=== PATIENT | male | born 1970 | race Caucasian/White ===

== ENCOUNTER 2017-08-15 10:26 | Emergency (ER) | payer BC ==
[2017-08-15] MEDS ORDERED: ONDANSETRON 4 MG/2 ML VIAL IVP STA (11:08)
[2017-08-15] MEDS ORDERED: SODIUM CHLORIDE 0.9% 1,000 ML IV STA (11:08)
[2017-08-15] MEDS ORDERED: KETOROLAC 30 MG/ML 1 ML VIAL IVP STA (11:08)
--- NOTE | 2017-08-15 11:14 | ED ---
General Adult HPI - General Chief complaint: Abdominal Pain Stated complaint: POSS DEHYDRATION, UNABLE TO EAT OR URINATE Time Seen by Provider: 08/15/17 11:02 Source: patient, RN notes reviewed Mode of arrival: ambulatory Limitations: no limitations - History of Present Illness Initial comments: Patient's a 46-year-old male who presents emergency room today with multiple complaints. Patient does admit that he's had cough congestion over the last week. He doesn't sputum production at times. He doesn't feeling nauseated over the last 5 days. States had a decreased appetite is not really ate anything the last 2 days. States he last ate something 2 days ago. Patient states is not any vomiting. He does admit that his had no bowel movement. States he has been urinating but just going small amounts. He feels like he has not taken anything in. Patient admits to feeling hot and cold. Admits to chills. He admits to bodyaches. States he took some TheraFlu at home this morning. States has not taken anything else. States he did try to go to urgent care was advised coming here to emergency room. Patient denies any recent shortness of breath, chest pain, back pain, vomiting, numbness or tingling, dysuria or hematuria, constipation or diarrhea, headaches or visual changes, or any other complaints. - Related Data Home Medications Medication Instructions Recorded Confirmed Diphenhydra/Phenyleph/Acetamin 1 pack PO DAILY PRN 08/15/17 08/15/17 [Theraflu Severe Cold & Cough] Multivitamins, Thera [Multivitamin 1 tab PO DAILY 08/15/17 08/15/17 (formulary)] Previous Rx's Medication Instructions Recorded Ibuprofen [Motrin] 600 mg PO Q6HR PRN #20 day 08/15/17 Allergies Allergy/AdvReac Type Severity Reaction Status Date / Time No Known Allergies Allergy Verified 08/15/17 10:47 Review of Systems ROS Statement: Those systems with pertinent positive or pertinent negative responses have been documented in the HPI. ROS Other: All systems not noted in ROS Statement are negative. Past Medical History Past Medical History: No Reported History History of Any Multi-Drug Resistant Organisms: None Reported Past Surgical History: No Surgical Hx Reported Past Psychological History: No Psychological Hx Reported Smoking Status: Never smoker Past Alcohol Use History: None Reported Past Drug Use History: None Reported General Exam - General Exam Comments Initial Comments: General: The patient is awake and alert, in no distress, and does not appear acutely ill. Eye: Pupils are equal, round and reactive to light, extra-ocular movements are intact. No nystagmus. There is normal conjunctiva bilaterally. No signs of icterus. Ears, nose, mouth and throat: There are moist mucous membranes and no oral lesions. Neck: The neck is supple, there is no tenderness or JVD. Cardiovascular: There is a regular rate and rhythm. No murmur, rub or gallop is appreciated. Respiratory: Lungs are clear to auscultation, respirations are non-labored, breath sounds are equal. No wheezes, stridor, rales, or rhonchi. Gastrointestinal: Normal appearance of the abdomen. Normal bowel sounds. Abdomen soft on palpation. Patient does have mild tenderness in the upper quadrants and epigastric areas. No rebound tenderness. No guarding. Musculoskeletal: Normal ROM, no tenderness. Strength 5/5. Sensation intact. Pulses equal bilaterally 2+. Neurological: A&O x 3. CN II-XII intact, There are no obvious motor or sensory deficits. Coordination appears grossly intact. Speech is normal. Skin: Skin is warm and dry and no rashes or lesions are noted. Psychiatric: Cooperative, appropriate mood & affect, normal judgment. Limitations: no limitations Course Vital Signs 08/15/17 10:39 Temperature 97.7 F Pulse Rate 89 Respiratory 22 Rate Blood Pressure 137/96 O2 Sat by Pulse 98 Oximetry Medical Decision Making - Medical Decision Making Patient reexamined at this time shows no signs of distress. He is feeling much better from IV fluids here in the emergency room. Patient's labs been reviewed does show some mild dehydration. Patient's influenza A positive. Results were discussed with patient. Sinus feeling well and discharged home. Advised continue tall/Motrin for fever and body aches at home. Advised to follow up his family doctor return here to the emergency room if any symptoms increase or worsen or for any other concerns. - Lab Data Result diagrams: 08/15/17 11:45 08/15/17 11:45 Lab Results 08/15/17 08/15/17 08/15/17 Range/Units 11:10 11:45 11:45 WBC 5.9 (3.8-10.6) k/uL RBC 5.20 (4.30-5.90) m/uL Hgb 15.8 (13.0-17.5) gm/dL Hct 47.3 (39.0-53.0) % MCV 91.1 (80.0-100.0) fL MCH 30.5 (25.0-35.0) pg MCHC 33.5 (31.0-37.0) g/dL RDW 13.8 (11.5-15.5) % Plt Count 157 (150-450) k/uL Neutrophils % 66 % Lymphocytes % 21 % Monocytes % 9 % Eosinophils % 2 % Basophils % 1 % Neutrophils # 3.9 (1.3-7.7) k/uL Lymphocytes # 1.2 (1.0-4.8) k/uL Monocytes # 0.5 (0-1.0) k/uL Eosinophils # 0.1 (0-0.7) k/uL Basophils # 0.0 (0-0.2) k/uL Sodium 143 (137-145) mmol/L Potassium 4.3 (3.5-5.1) mmol/L Chloride 103 (98-107) mmol/L Carbon Dioxide 24 (22-30) mmol/L Anion Gap 16 mmol/L BUN 25 H (9-20) mg/dL Creatinine 1.30 H (0.66-1.25) mg/dL Est GFR (MDRD) Af Amer >60 (>60 ml/min/1.73 sqM) Est GFR (MDRD) Non-Af 59 (>60 ml/min/1.73 sqM) Glucose 100 H (74-99) mg/dL Calcium 9.9 (8.4-10.2) mg/dL Total Bilirubin 0.8 (0.2-1.3) mg/dL AST 23 (17-59) U/L ALT 38 (21-72) U/L Alkaline Phosphatase 78 (38-126) U/L Total Protein 8.0 (6.3-8.2) g/dL Albumin 4.9 (3.5-5.0) g/dL Amylase 46 (30-110) U/L Lipase 79 (23-300) U/L Urine Color Yellow Urine Appearance Cloudy (Clear) Urine pH 5.5 (5.0-8.0) Ur Specific Cochran 1.033 (1.001-1.035) Urine Protein 2+ H (Negative) Urine Glucose (UA) Negative (Negative) Urine Ketones 1+ H (Negative) Urine Blood Trace H (Negative) Urine Nitrite Negative (Negative) Urine Bilirubin Negative (Negative) Urine Urobilinogen 2.0 (<2.0) mg/dL Ur Leukocyte Esterase Negative (Negative) Urine RBC 1 (0-5) /hpf Urine WBC 1 (0-5) /hpf Urine Bacteria Rare H (None) /hpf Hyaline Casts 34 H (0-2) /lpf Urine Mucus Many H (None) /hpf Heterophile Antibody (Negative) Influenza Type A RNA (Not Detectd) Influenza Type B (PCR) (Not Detectd) Group A Strep Rapid (Negative) 08/15/17 08/15/17 08/15/17 Range/Units 11:45 11:45 11:45 WBC (3.8-10.6) k/uL RBC (4.30-5.90) m/uL Hgb (13.0-17.5) gm/dL Hct (39.0-53.0) % MCV (80.0-100.0) fL MCH (25.0-35.0) pg MCHC (31.0-37.0) g/dL RDW (11.5-15.5) % Plt Count (150-450) k/uL Neutrophils % % Lymphocytes % % Monocytes % % Eosinophils % % Basophils % % Neutrophils # (1.3-7.7) k/uL Lymphocytes # (1.0-4.8) k/uL Monocytes # (0-1.0) k/uL Eosinophils # (0-0.7) k/uL Basophils # (0-0.2) k/uL Sodium (137-145) mmol/L Potassium (3.5-5.1) mmol/L Chloride (98-107) mmol/L Carbon Dioxide (22-30) mmol/L Anion Gap mmol/L BUN (9-20) mg/dL Creatinine (0.66-1.25) mg/dL Est GFR (MDRD) Af Amer (>60 ml/min/1.73 sqM) Est GFR (MDRD) Non-Af (>60 ml/min/1.73 sqM) Glucose (74-99) mg/dL Calcium (8.4-10.2) mg/dL Total Bilirubin (0.2-1.3) mg/dL AST (17-59) U/L ALT (21-72) U/L Alkaline Phosphatase (38-126) U/L Total Protein (6.3-8.2) g/dL Albumin (3.5-5.0) g/dL Amylase (30-110) U/L Lipase (23-300) U/L Urine Color Urine Appearance (Clear) Urine pH (5.0-8.0) Ur Specific Cochran (1.001-1.035) Urine Protein (Negative) Urine Glucose (UA) (Negative) Urine Ketones (Negative) Urine Blood (Negative) Urine Nitrite (Negative) Urine Bilirubin (Negative) Urine Urobilinogen (<2.0) mg/dL Ur Leukocyte Esterase (Negative) Urine RBC (0-5) /hpf Urine WBC (0-5) /hpf Urine Bacteria (None) /hpf Hyaline Casts (0-2) /lpf Urine Mucus (None) /hpf Heterophile Antibody Negative (Negative) Influenza Type A RNA Detected H (Not Detectd) Influenza Type B (PCR) Not Detected (Not Detectd) Group A Strep Rapid Negative (Negative) Disposition Clinical Impression: Influenza A Disposition: HOME SELF-CARE Condition: Good Instructions: Influenza (ED) Additional Instructions: Please use medication as discussed. Please follow-up with family doctor in the next 2 days of symptoms have not improved. Please return to emergency room if the symptoms increase or worsen or for any other concerns. Prescriptions: Ibuprofen [Motrin] 600 mg PO Q6HR PRN #20 day PRN Reason: Pain Referrals: None,Stated [Primary Care Provider] - 1-2 days Time of Disposition: 13:14
[2017-08-15 11:57] LABS: Appearance,Urine Cloudy (Clear); Bacteria,Urine Rare /hpf; Bilirubin,Urine Negative (Negative); Blood,Urine Trace (Negative); Color,Urine Yellow; Glucose,Urine (UA) Negative (Negative); Hyaline Casts,Urine 34 /lpf (0-2); Ketones,Urine 1+ (Negative); Leukocyte Esterase,Urine Negative (Negative); Mucus,Urine Many /hpf; Nitrite,Urine Negative (Negative); PH, Urine 5.5 (5.0-8.0); Protein,Urine 2+ (Negative); RBC,Urine 1 /hpf (0-5); Specific Gravity,Urine 1.033 (1.001-1.035); WBC,Urine 1 /hpf (0-5)
[2017-08-15 12:04] LABS: Basophils % (A) 1 %; Eosinophils # (A) 0.1 k/uL (0-0.7); Eosinophils % (A) 2 %; HCT 47.3 % (39.0-53.0); HGB 15.8 gm/dL (13.0-17.5); Lymphocytes # (A) 1.2 k/uL (1.0-4.8); Lymphocytes % (A) 21 %; MCH 30.5 pg (25.0-35.0); MCHC 33.5 g/dL (31.0-37.0); MCV 91.1 fL (80.0-100.0); Monocytes # (A) 0.5 k/uL (0-1.0); Monocytes % (A) 9 %; Neutrophils # (A) 3.9 k/uL (1.3-7.7); Neutrophils % (A) 66 %; Platelet Count 157 k/uL (150-450); RDW 13.8 % (11.5-15.5); WBC 5.9 k/uL (3.8-10.6)
--- NOTE | 2017-08-15 12:10 | XR ---
EXAMINATION TYPE: XR chest 2V DATE OF EXAM: 08/15/2017 COMPARISON: None HISTORY: 46-year-old male with cough TECHNIQUE: PA and lateral views FINDINGS: The cardiomediastinal silhouette and pulmonary vasculature are within normal limits. May be some ecta demi of the ascending aorta. Lungs and pleural spaces are clear. IMPRESSION: No acute cardiopulmonary process. There may be ectasia of the ascending aorta.
[2017-08-15 12:26] LABS: ALT 38 U/L (21-72); AST 23 U/L (17-59); Albumin 4.9 g/dL (3.5-5.0); Alkaline Phosphatase 78 U/L (38-126); Amylase 46 U/L (30-110); Anion Gap 16 mmol/L; Blood Urea Nitrogen 25 mg/dL (9-20); Calcium 9.9 mg/dL (8.4-10.2); Carbon Dioxide 24 mmol/L (22-30); Chloride 103 mmol/L (98-107); Glucose 100 mg/dL (74-99); Lipase 79 U/L (23-300); Potassium 4.3 mmol/L (3.5-5.1); Sodium 143 mmol/L (137-145); Total Bilirubin 0.8 mg/dL (0.2-1.3)
[2017-08-15 13:32] VITALS: BP 126/57; PULSE 60; RESP 18; TEMP 98.1
== END 2017-08-15 13:32 | disposition home or self-care (01) ==
LOC: EC 10:26
DX: J10.1 Influenza due to other identified influenza virus with other respiratory manifestations (principal); R10.9 Unspecified abdominal pain; Z79.899 Other long term (current) drug therapy
CPT/HCPCS: 36415; 80053; 82150; 83690; 85025; 86308; 81001; 87040; 87081; 87430; 87502; 71046; 99284; 96374; 96375; 96361 ×2; J2405; J1885

== ENCOUNTER → 2017-10-21 | Outpatient (CLI) | payer BC ==
--- NOTE | 2017-10-21 15:45 | US ---
EXAMINATION TYPE: US thyroid st tissue head/neck DATE OF EXAM: 10/21/2017 COMPARISON: NONE CLINICAL HISTORY: I35.0 Aortic stenosis R22.1 Neck mass. Patient states doctor felt an enlargement on left neck. Left neck scanned at palpable area. Two lymph node appearing lesions seen, both vascular. 1- 1.1 x 1.0 x 0.8 cm 2- 0.8 x 0.7 x 0.3 cm Contralateral image taken. IMPRESSION: 2 left-sided lymph nodes are not felt to be pathologic in appearance at this time. Corre late clinically.
--- NOTE | 2017-10-22 21:09 | ECHOF ---
Referral Reason:I35.0 Aortic stenosis R22.1 Neck mass MEASUREMENTS -------- HEIGHT: 177.8 cm WEIGHT: 79.4 kg BP: 135/96 RVIDd: 2.7 cm (< 3.3) IVSd: 1.4 cm (0.6 - 1.1) LVIDd: 3.8 cm (3.9 - 5.3) LVPWd: 1.3 cm (0.6 - 1.1) EDV(Teich): 62 ml IVSs: 1.7 cm LVIDs: 2.6 cm LVPWs: 1.7 cm %IVS Thck: 21 % ESV(Teich): 24 ml EF(Teich): 61 % %FS: 32 % SV(Teich): 38 ml LVOT Diam: 2.0 cm LALs A4C: 5.3 cm LAAs A4C: 12.1 cm LAESV A-L A4C: 24 ml LAESV MOD A4C: 22 ml LALs A2C: 5.0 cm LAAs A2C: 14.5 cm LAESV A-L A2C: 36 ml LAESV MOD A2C: 35 ml LAESV(A-L): 30 ml LAESV Index (A-L): 15.30 ml/m Ao Diam: 3.4 cm (2.0 - 3.7) AV Cusp: 2.3 cm (1.5 - 2.6) LA Diam: 2.5 cm (2.7 - 3.8) MV EXCURSION: 19.089 mm (> 18.000) MV EF SLOPE: 28 mm/s (70 - 150) MV E Albino: 0.87 m/s MV DecT: 311 ms MV Dec [place]: 2.8 m/s MV A Albino: 0.63 m/s MV E/A Ratio: 1.39 MV PHT: 90 ms E/E': 5.35 E': 0.16 m/s LVOT Vmax: 1.01 m/s LVOT Vmean: 0.74 m/s LVOT maxP.08 mmHg LVOT meanP.41 mmHg LVOT Env.Ti: 295 ms LVOT VTI: 21.7 cm AV Vmax: 3.21 m/s AV Vmean: 2.29 m/s AV maxP.53 mmHg AV meanP.14 mmHg AV Env.Ti: 314 ms AV VTI: 72.1 cm SHERICE Vmax: 1.0 cm SHERICE (VTI): 1.0 cm AR Vmax: 3.62 m/s AR maxP.78 mmHg AR PHT: 543 ms AR Dec Time: 1872 ms AR Dec [place]: 1.9 m/s TR Vmax: 1.77 m/s TR maxP.53 mmHg RAP: 5.00 mmHg RVSP: 17.53 mmHg FINDINGS -------- Sinus rhythm. This was a technically good study. The left ventricular size is normal. There is mild concentric left ventricular hypertrophy. Overa ll left ventricular systolic function is normal with, an EF between 55 - 60 %. The right ventricle is normal in size and function. Normal LA size by volume 22+/-6 ml/m2. The right atrium is normal in size. There is [id number] aortic regurgitation. There is moderate aortic stenosis present. Peak/m yazmin gradient across the Aortic Valve is 41.53mmHg / 24.14mmHg. B icuspid aortic valve. The mitral valve is normal. There is trace mitral regurgitation. Trace tricuspid regurgitation present. Right ventricular systolic pressure is normal at < 35 mmHg. There is no evidence of pulmonary hypertension. Trace/mild (physiologic) pulmonic regurgitation. The aortic root is severely dilated up to 5.4 cm. Area of interest Asc. Aortic. (Supra Sternal). Normal inferior vena cava with normal inspiratory collapse consistent with estimated right atrial pre ssure of 5 mmHg. There is no pericardial effusion. CONCLUSIONS -------- 1. Sinus rhythm. 2. This was a technically good study. 3. The left ventricular size is normal. 4. There is mild concentric left ventricular hypertrophy. 5. Overall left ventricular systolic function is normal with, an EF between 55 - 60 %. 6. Normal LA size by volume 22+/-6 ml/m2. 7. There is [id number]-[id number] aortic regurgitation. 8. There is moderate aortic stenosis present. 9. Peak/mean gradient across the Aortic Valve is 41.53mmHg / 24.14mmHg. 10. Functionally bicuspid aortic valve. 11. There is trace mitral regurgitation. 12. Trace tricuspid regurgitation present. 13. Right ventricular systolic pressure is normal at < 35 mmHg. 14. There is no evidence of pulmonary hypertension. 15. Trace/mild (physiologic) pulmonic regurgitation. 16. The aortic root is severely dilated up to 5.4 cm. 17. Area of interest Asc. Aortic. (Supra Sternal). 18. There is no pericardial effusion. AURICULAR THERAPIST: Senthil Meadows RDCS
== END | disposition home or self-care (01) ==
LOC: RADECHMAIN 14:34
PROVIDERS: ATTEND Family Medicine
DX: R22.1 Localized swelling, mass and lump, neck (principal); I35.8 Other nonrheumatic aortic valve disorders; I33.0 Acute and subacute infective endocarditis
CPT/HCPCS: 76536; 93306

== ENCOUNTER 2019-10-27 01:39 | Emergency (ER) | payer BC ==
[2019-10-27] MEDS ORDERED: ASPIRIN 81 MG PO STA (02:11)
--- NOTE | 2019-10-27 02:35 | ED ---
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 Patient states that he has had a chest pressure and shortness of breath when lying flat. He states was upright he does not seem to nose as much. He states it increased when he went to go to bed tonight. Patient states has been ongoing for the past 24 hours however. Patient states he has had some congestion however denies any significant upper respiratory symptoms saying that he usually has ALLERGIES around this time he denies any cough fevers diarrhea nausea vomiting abdominal pain back or jaw pain or arm pain. Patient denies any pleuritic chest pain denies hemoptysis history of DVT or pulmonary embolism denies any lower extremity swelling calf pain. Patient states that he takes 25mg metoprolol succinate for rate control since discharge from hospital in 2018. Patient is also currently on 5mg coumadin daily and a baby aspirin. Patient denies history of CAD, lifetime nonsmoker, denies DM or HTN. Patient has no other complaints. Upon arrival patient appears well there is no signs of acute distress. (Rimma Love) - Related Data Home Medications Medication Instructions Recorded Confirmed Diphenhydra/Phenyleph/Acetamin 1 pack PO DAILY PRN 08/15/17 08/15/17 [Theraflu Severe Cold & Cough] Multivitamins, Thera [Multivitamin 1 tab PO DAILY 08/15/17 08/15/17 (formulary)] Previous Rx's Medication Instructions Recorded Ibuprofen [Motrin] 600 mg PO Q6HR PRN #20 day 08/15/17 Allergies Allergy/AdvReac Type Severity Reaction Status Date / Time No Known Allergies Allergy Verified 10/27/19 01:59 Review of Systems ROS Other: All systems not noted in ROS Statement are negative. <Rimma Love - Last Filed: 10/27/19 02:32> ROS Other: All systems not noted in ROS Statement are negative. <Elham Ramirez - Last Filed: 10/27/19 06:13> ROS Statement: Those systems with pertinent positive or pertinent negative responses have been documented in the HPI. Past Medical History Past Medical History: No Reported History History of Any Multi-Drug Resistant Organisms: None Reported Past Surgical History: No Surgical Hx Reported Additional Past Surgical History / Comment(s): aortic valve replaed and pacemaker Past Psychological History: No Psychological Hx Reported Smoking Status: Never smoker Past Alcohol Use History: None Reported Past Drug Use History: None Reported <Rimma Love L - Last Filed: 10/27/19 02:32> Course Vital Signs 10/27/19 10/27/19 10/27/19 01:54 03:00 04:00 Temperature 98.1 F Pulse Rate 73 63 64 Respiratory 18 16 16 Rate Blood Pressure 116/70 O2 Sat by Pulse 100 96 96 Oximetry 10/27/19 10/27/19 05:00 06:00 Temperature 98.9 F Pulse Rate 62 60 Respiratory 16 16 Rate Blood Pressure 109/76 113/74 O2 Sat by Pulse 98 Oximetry Medical Decision Making - Lab Data Result diagrams: 10/27/19 02:14 10/27/19 02:14 <Elham Ramirez - Last Filed: 10/27/19 06:13> - Medical Decision Making Patient care was signed out to me at shift change. This is 48-year-old male with a history of mechanical valve replacement, patient is presenting with a few days of shortness of breath. No specific chest pain or palpitations. Patient is on Coumadin due to his mechanical valve and was found have an INR of 1.9, initially Lovenox was ordered with the concern this may be subtherapeutic however patient reports that with the type of valve he has his goal INR is 1.5- 2.5 therefore he declined Lovenox. Patient had 2 troponins which were negative, BNP was not elevated, chest x-ray w as unremarkable. Upon my evaluation patient was resting comfortably, oxygen saturation 98%, respiratory rate approximately 14, no tachycardia or respiratory distress. At this time he feels reassured by labs and findings and is comfortable with the plan for discharge home. (Elham Ramirez - Lab Data Lab Results 10/27/19 10/27/19 10/27/19 Range/Units 02:14 02:14 02:14 WBC 7.7 (3.8-10.6) k/uL RBC 4.82 (4.30-5.90) m/uL Hgb 15.1 (13.0-17.5) gm/dL Hct 44.2 (39.0-53.0) % MCV 91.6 (80.0-100.0) fL MCH 31.3 (25.0-35.0) pg MCHC 34.2 (31.0-37.0) g/dL RDW 12.7 (11.5-15.5) % Plt Count 189 (150-450) k/uL Neutrophils % 55 % Lymphocytes % 31 % Monocytes % 5 % Eosinophils % 5 % Basophils % 1 % Neutrophils # 4.3 (1.3-7.7) k/uL Lymphocytes # 2.4 (1.0-4.8) k/uL Monocytes # 0.4 (0-1.0) k/uL Eosinophils # 0.4 (0-0.7) k/uL Basophils # 0.1 (0-0.2) k/uL PT 18.6 H (9.0-12.0) sec INR 1.9 H (<1.2) APTT 30.2 H (22.0-30.0) sec Sodium 140 (137-145) mmol/L Potassium 4.6 (3.5-5.1) mmol/L Chloride 107 (98-107) mmol/L Carbon Dioxide 26 (22-30) mmol/L Anion Gap 7 mmol/L BUN 20 (9-20) mg/dL Creatinine 1.13 (0.66-1.25) mg/dL Est GFR (CKD-EPI)AfAm 89 (>60 ml/min/1.73 sqM) Est GFR (CKD-EPI)NonAf 77 (>60 ml/min/1.73 sqM) Glucose 125 H (74-99) mg/dL Plasma Lactic Acid Tunde (0.7-2.0) mmol/L Calcium 9.3 (8.4-10.2) mg/dL Total Bilirubin 0.3 (0.2-1.3) mg/dL AST 25 (17-59) U/L ALT 19 (4-49) U/L Alkaline Phosphatase 77 (38-126) U/L Troponin I (0.000-0.034) ng/mL NT-Pro-B Natriuret Pep pg/mL Total Protein 7.2 (6.3-8.2) g/dL Albumin 4.5 (3.5-5.0) g/dL 10/27/19 10/27/19 10/27/19 Range/Units 02:14 02:14 02:14 WBC (3.8-10.6) k/uL RBC (4.30-5.90) m/uL Hgb (13.0-17.5) gm/dL Hct (39.0-53.0) % MCV (80.0-100.0) fL MCH (25.0-35.0) pg MCHC (31.0-37.0) g/dL RDW (11.5-15.5) % Plt Count (150-450) k/uL Neutrophils % % Lymphocytes % % Monocytes % % Eosinophils % % Basophils % % Neutrophils # (1.3-7.7) k/uL Lymphocytes # (1.0-4.8) k/uL Monocytes # (0-1.0) k/uL Eosinophils # (0-0.7) k/uL Basophils # (0-0.2) k/uL PT (9.0-12.0) sec INR (<1.2) APTT (22.0-30.0) sec Sodium (137-145) mmol/L Potassium (3.5-5.1) mmol/L Chloride (98-107) mmol/L Carbon Dioxide (22-30) mmol/L Anion Gap mmol/L BUN (9-20) mg/dL Creatinine (0.66-1.25) mg/dL Est GFR (CKD-EPI)AfAm (>60 ml/min/1.73 sqM) Est GFR (CKD-EPI)NonAf (>60 ml/min/1.73 sqM) Glucose (74-99) mg/dL Plasma Lactic Acid Tunde 1.7 (0.7-2.0) mmol/L Calcium (8.4-10.2) mg/dL Total Bilirubin (0.2-1.3) mg/dL AST (17-59) U/L ALT (4-49) U/L Alkaline Phosphatase (38-126) U/L Troponin I <0.012 (0.000-0.034) ng/mL NT-Pro-B Natriuret Pep 40 pg/mL Total Protein (6.3-8.2) g/dL Albumin (3.5-5.0) g/dL 10/27/19 Range/Units 05:00 WBC (3.8-10.6) k/uL RBC (4.30-5.90) m/uL Hgb (13.0-17.5) gm/dL Hct (39.0-53.0) % MCV (80.0-100.0) fL MCH (25.0-35.0) pg MCHC (31.0-37.0) g/dL RDW (11.5-15.5) % Plt Count (150-450) k/uL Neutrophils % % Lymphocytes % % Monocytes % % Eosinophils % % Basophils % % Neutrophils # (1.3-7.7) k/uL Lymphocytes # (1.0-4.8) k/uL Monocytes # (0-1.0) k/uL Eosinophils # (0-0.7) k/uL Basophils # (0-0.2) k/uL PT (9.0-12.0) sec INR (<1.2) APTT (22.0-30.0) sec Sodium (137-145) mmol/L Potassium (3.5-5.1) mmol/L Chloride (98-107) mmol/L Carbon Dioxide (22-30) mmol/L Anion Gap mmol/L BUN (9-20) mg/dL Creatinine (0.66-1.25) mg/dL Est GFR (CKD-EPI)AfAm (>60 ml/min/1.73 sqM) Est GFR (CKD-EPI)NonAf (>60 ml/min/1.73 sqM) Glucose (74-99) mg/dL Plasma Lactic Acid Tunde (0.7-2.0) mmol/L Calcium (8.4-10.2) mg/dL Total Bilirubin (0.2-1.3) mg/dL AST (17-59) U/L ALT (4-49) U/L Alkaline Phosphatase (38-126) U/L Troponin I <0.012 (0.000-0.034) ng/mL NT-Pro-B Natriuret Pep pg/mL Total Protein (6.3-8.2) g/dL Albumin (3.5-5.0) g/dL Disposition <Rimma Love L - Last Filed: 10/27/19 02:32> Is patient prescribed a controlled substance at d/c from ED?: No <Elham Ramirez - Last Filed: 10/27/19 06:13> Clinical Impression: Atypical chest pain Disposition: HOME SELF-CARE Condition: Stable Referrals: Channing Atkins DO [Primary Care Provider] - 1-2 days
[2019-10-27 02:38] LABS: Basophils # (A) 0.1 k/uL (0-0.2); Basophils % (A) 1 %; Eosinophils # (A) 0.4 k/uL (0-0.7); Eosinophils % (A) 5 %; HCT 44.2 % (39.0-53.0); HGB 15.1 gm/dL (13.0-17.5); Lymphocytes # (A) 2.4 k/uL (1.0-4.8); Lymphocytes % (A) 31 %; MCH 31.3 pg (25.0-35.0); MCHC 34.2 g/dL (31.0-37.0); MCV 91.6 fL (80.0-100.0); Monocytes # (A) 0.4 k/uL (0-1.0); Monocytes % (A) 5 %; Neutrophils # (A) 4.3 k/uL (1.3-7.7); Neutrophils % (A) 55 %; Platelet Count 189 k/uL (150-450); RBC 4.82 m/uL (4.30-5.90); RDW 12.7 % (11.5-15.5); WBC 7.7 k/uL (3.8-10.6)
[2019-10-27 02:46] LABS: Albumin 4.5 g/dL (3.5-5.0); Calcium 9.3 mg/dL (8.4-10.2); Potassium 4.6 mmol/L (3.5-5.1); Total Bilirubin 0.3 mg/dL (0.2-1.3); Total Protein 7.2 g/dL (6.3-8.2)
[2019-10-27 02:48] LABS: INR 1.9 (<1.2); Partial Thromboplastin Time 30.2 sec (22.0-30.0); Prothrombin Time 18.6 sec (9.0-12.0)
--- NOTE | 2019-10-27 03:16 | XR ---
EXAMINATION TYPE: XR chest 2V DATE OF EXAM: 10/27/2019 COMPARISON: 08/15/2017 HISTORY: Difficulty breathing TECHNIQUE: FINDINGS: Heart and mediastinum are normal. Lungs are clear. Diaphragm is normal. There are sternal w ires. There is a left axillary pacemaker. Costophrenic angles are clear. IMPRESSION: No active cardiopulmonary disease. No change.
[2019-10-27] MEDS ORDERED: ENOXAPARIN 80 MG/0.8 ML SYRINGE SQ STA (03:27)
[2019-10-27 05:15] VITALS: RESP 16
[2019-10-27 06:02] VITALS: BP 113/74; PULSE 60; TEMP 98.9
== END 2019-10-27 06:12 | disposition home or self-care (01) ==
LOC: EC 01:39
DX: R07.89 Other chest pain (principal); R06.02 Shortness of breath; R09.89 Other specified symptoms and signs involving the circulatory and respiratory systems; I48.91 Unspecified atrial fibrillation; Z95.0 Presence of cardiac pacemaker; Z95.2 Presence of prosthetic heart valve
CPT/HCPCS: 36415; 71046; 80053; 83605; 83880; 84484; 85025; 85610; 85730; 93005; 99285